=== PATIENT | male | born 1985 | race Caucasian/White ===

== ENCOUNTER 2017-08-11 11:23 | Emergency (ER) | payer SELFPAY ==
--- NOTE | 2017-08-11 11:33 | EDM.PDOC ---
ED HPI GENERAL MEDICAL PROBLEM - General Stated Complaint: L LITTLE FINGER PAIN Time Seen by Provider: 08/11/17 11:32 Source of Information: Reports: Patient - History of Present Illness INITIAL COMMENTS - FREE TEXT/NARRATIVE: HISTORY AND PHYSICAL: History of present illness: [32-year-old male presents after hitting his hand stuck between a couple of pieces a height yesterday, does have a laceration on the dorsum of the individual phalanx on the fifth digit third fourth and fifth digits were affected Mild swelling distally on the fifth digit tendon function is intact, patient has placed a bandage and was working today, he is unable to work through all day due to discomfort of the fifth digit. Entire limb is neurovascularly intact no redness warmth or exudates Tetanus status is up-to-date as of 2 years prior per patient No fever nausea vomiting chills sweats ] Review of systems: As per history of present illness and below otherwise all systems reviewed and negative. Past medical history: As per history of present illness and as reviewed below otherwise noncontributory. Surgical history: As per history of present illness and as reviewed below otherwise noncontributory. Social history: No reported history of drug or alcohol abuse. Family history: As per history of present illness and as reviewed below otherwise noncontributory. Physical exam: HEENT: Atraumatic, normocephalic, pupils reactive, negative for conjunctival pallor or scleral icterus, mucous membranes moist, throat clear, neck supple, nontender, trachea midline. Lungs: Clear to auscultation, breath sounds equal bilaterally, chest nontender. Heart: S1S2, regular, negative for clicks, rubs, or JVD. Abdomen: Soft, nondistended, nontender. Negative for masses or hepatosplenomegaly. Negative for costovertebral tenderness. Pelvis: Stable nontender. Genitourinary: Deferred. Rectal: Deferred. Extremities: Atraumatic, negative for cords or calf pain. Neurovascular unremarkable. Neuro: Awake, alert, oriented. Cranial nerves II through XII unremarkable. Cerebellum unremarkable. Motor and sensory unremarkable throughout. Exam nonfocal. Diagnostics: [X-ray left hand ] Therapeutics: [Tetanus status up-to-date Keflex 500 by mouth twice a day #20 no refill Tylenol No. 3 1-2 tab by mouth every 6 when necessary Rest ice ibuprofen Patient declined a splint for now as he plans to continue working today and would likely amputate his finger if it were splinted as he works on the floors of a service rate Did provide a splint to use at home recommend rest ice ibuprofen at home with splint ] Impression: [Contusion, laceration] Definitive disposition and diagnosis as appropriate pending reevaluation and review of above. left hand Pain Score (Numeric/FACES): 7 - Related Data Allergies Allergy/AdvReac Type Severity Reaction Status Date / Time No Known Allergies Allergy Verified 08/11/17 11:32 Home Meds: Home Meds . [No Known Home Meds] 08/11/17 [History] ED ROS GENERAL - Review of Systems Review Of Systems: ROS reveals no pertinent complaints other than HPI. ED EXAM, GENERAL - Physical Exam Exam: See Below Course - Vital Signs Last Recorded V/S: Last Vital Signs Temp 97.2 F 08/11/17 11:32 Pulse 67 08/11/17 11:32 Resp 18 08/11/17 11:32 BP 119/81 08/11/17 11:32 Pulse Ox 97 08/11/17 11:32 Departure - Departure Time of Disposition: 12:33 Disposition: Home, Self-Care 01 Condition: Good Clinical Impression: Contusion, Laceration - Discharge Information Referrals: PCP,None [Primary Care Provider] - Additional Instructions: Medication as prescribed Return if symptoms persist or worsen or new concerning symptoms develop Specifically redness warmth or pus drainage despite antibiotics Splint provided to use at home while not working, again with the splinted finger 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 This information is to outline your options for follow-up care. We provide all patients seen in our emergency department with a follow-up referral. The need for follow-up, as well as the timing and circumstances, are variable depending upon the specifics of your emergency department visit. If you don't have a primary care physician on staff, we will provide you with a referral. We always advise you to contact your personal physician following an emergency department visit to inform them of the circumstance of the visit and for follow-up with them and/or the need for any referrals to a consulting specialist. The emergency department will also refer you to a specialist when appropriate. This referral assures that you have the opportunity for follow-up care with a specialist. All of these measure are taken in an effort to provide you with optimal care, which includes your follow-up. Under all circumstances we always encourage you to contact your private physician who remains a resource for coordinating your care. When calling for follow-up care, please make the office aware that this follow-up is from your recent emergency room visit. If for any reason you are refused follow-up, please contact the [facility] emergency department at and asked to speak to the emergency department charge nurse.
--- NOTE | 2017-08-11 12:21 | CR ---
EXAMINATION: Left hand HISTORY: Pain COMPARISON: None TECHNIQUE: 3 views FINDINGS/IMPRESSION: There is no acute osseous abnormality, dislocation, or fracture. Bone mineraliza tion and joint spaces appear normal. There is a splint overlying the fifth digit.
[2017-08-11] MEDS ORDERED: Bacitracin Oint 1 GM U/D Packet ONE (12:43)
[2017-08-11] MEDS ORDERED: Bacitracin Oint 1 GM U/D Packet TOP ONE (12:45)
[2017-08-11] MEDS ORDERED: Bacitracin Oint 28.35 GM Tube TOP SCH (14:00)
== END 2017-08-11 12:56 | disposition home or self-care (01) ==
LOC: MW.ED 11:23
DX: S61.217A Laceration without foreign body of left little finger without damage to nail, initial encounter (principal); S60.042A Contusion of left ring finger without damage to nail, initial encounter; S60.032A Contusion of left middle finger without damage to nail, initial encounter; W23.1XXA Caught, crushed, jammed, or pinched between stationary objects, initial encounter
CPT/HCPCS: 73130-26-LT; 73130-LT; 99283